=== PATIENT | female | born 1985 | race Caucasian/White ===

== ENCOUNTER 2017-10-21 20:17 | Emergency (ER) | payer OTHER ==
[2017-10-21] MEDS ORDERED: HYDROcodone/Acetaminophen 10/325 mg Tablet ONE (20:45)
[2017-10-21] MEDS ORDERED: predniSONE 20 MG TAB ONE (20:45)
[2017-10-21] MEDS ORDERED: Amoxicillin/Potassium Clav 875 MG TAB ONE (20:47)
== END 2017-10-21 20:53 | disposition home or self-care (01) ==
LOC: MADERS 20:17
DX: J02.9 Acute pharyngitis, unspecified (principal); F41.9 Anxiety disorder, unspecified; F17.210 Nicotine dependence, cigarettes, uncomplicated
CPT/HCPCS: 99282; J7506

== ENCOUNTER 2020-04-01 13:12 | Emergency (ER) | payer OTHER ==
[2020-04-01] MEDS ORDERED: Ibuprofen 800 MG TAB ONE (13:41)
[2020-04-01] MEDS ORDERED: Acetaminophen 500 MG TAB ONE (13:41)
--- NOTE | 2020-04-01 14:22 | RAD ---
LEFT KNEE: 04/01/20 Four views. HISTORY: Injury. Joint spaces are preserved. No fracture. No effusion. No degenerative change. No acute finding. POS: [facility]
== END 2020-04-01 14:35 | disposition home or self-care (01) ==
LOC: MADERS 13:12
DX: S83.92XA Sprain of unspecified site of left knee, initial encounter (principal); F90.9 Attention-deficit hyperactivity disorder, unspecified type; F41.9 Anxiety disorder, unspecified; F17.210 Nicotine dependence, cigarettes, uncomplicated; Z79.899 Other long term (current) drug therapy; X58.XXXA Exposure to other specified factors, initial encounter